=== PATIENT | female | born 1970 | race Caucasian/White ===

== ENCOUNTER 2019-08-19 00:01 | Observation (INO) ==
[2019-08-19] MEDS ORDERED: SODIUM CHLORIDE 0.9% 1000ML 1,000 ML IV ONE (00:25)
[2019-08-19] MEDS ORDERED: ONDANSETRON INJ 2 MG/ML 2 ML VIAL IV STA (00:25)
[2019-08-19] MEDS ORDERED: HYDROmorphone INJ 0.5 MG/0.5 ML SYR IV STA ×2 (00:25→01:54)
[2019-08-19 02:33] LABS: Basophils # (auto) 0.01 K/uL (0-0.2); Basophils % (auto) 0.1 %; Eosinophils # (auto) 0.02 K/uL (0-0.5); Eosinophils % (auto) 0.2 %; Hematocrit (blood only) 40.8 % (37-47); Hemoglobin 12.9 g/dL (12.0-16.0); Immature Granulocytes # (auto) 0.01 K/uL (0.00-0.02); Immature Granulocytes % (auto) 0.1 %; Lymphocytes # (auto) 0.77 K/uL (1.2-3.4); Lymphocytes % (auto) 7.3 %; Mean Corpuscular Hgb Conc 31.6 g/dL (32-36); Mean Corpuscular Volume 88.5 fL (80-100); Mean Platelet Volume 10.3 fL (7.4-10.4); Monocytes # (auto) 0.42 K/uL (0.11-0.59); Neutrophils # (auto) 9.33 K/uL (1.4-6.5); Neutrophils % (auto) 88.3 %; Platelet Count 224 K/uL (130-400); RDW Coefficient of Variation 14.2 % (11.5-14.5); RDW Standard Deviation 46.2 fL (36.4-46.3); Red Blood Count 4.61 M/uL (4.2-5.4); White Blood Count 10.56 K/uL (4.8-10.8)
[2019-08-19 02:55] LABS: Albumin Globulin Ratio 0.9 (0.9-2); Albumin Level 3.3 gm/dl (3.4-5.0); BUN Creatinine Ratio 17.5 (10-20); Bilirubin,Total 0.2 mg/dl (0.2-1); Calcium 7.8 mg/dl (8.5-10.1); Creatinine Clr Calc Pharmacy 108.4 ml/min; Est GFR (African American) 104.2; Est GFR (Non-African American) 89.9; Globulin 3.8 gm/dl (2.5-4.0); Potassium 3.9 mmol/L (3.5-5.1); Total Protein 7.1 gm/dl (6.4-8.2)
--- NOTE | 2019-08-19 03:55 | History & Physical Report ---
Date of Service August 19, 2019 Assessment & Plan (1) Cholelithiases: -will admit pt. to hospital -keep npo for possible cholecystectomy later today -will hold on IV antibiotic as no signs of cholecystitis on labs or imaging -pain control measures to be implemented -hydrate with IVF -will obtain CXR and EKG in anticipation for surgery History of Present Illness Primary Care Provider: Jayjay Mortensen MD 9 year old female developed epigastric and RUQ pain after eating dinner last night. She has had this problem in the past and was to see [facility] general surgery later this week for evaluation for cholecystectomy. As she has had this pain in the past, she notes it usually resolves but this xenia eit did not so she came to the ED. She felt warm but had no fevers. She has had N/V. The pain is worse after eating. No palliative factors noted. In the ED, GB US showed a non-mobile gallstone in the neck of the GB. She was afebrile with normal WBC. LFTs, bilirubin and lipase were all normal, except slight elevation in Alk phos. She notes she is not very active at home, but denies CP with daily acclivity. She does admit to some slight SOB with steps. She smokes daily, but less than 1ppd. She drink ETOH socially on wekends. 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 Beliefs That Will Affect Care: None Current Living Situation: Spouse Other Information That Helps Us Care for You: No Feels Safe at Home: Yes Safety Concerns: Feels Safe At This Time Smoking Status: Current every day smoker Tobacco Type: cigarettes ; Do You Dip or Chew Tobacco: No ; Second Hand Exposure: No ; Tobacco Cessation Education Requested by Patient: No Hx Alcohol Use: Yes Alcohol type: beer Hx Substance Use: No Review of Systems Constitutional: no fever and no chills Eyes: no diplopia Ear, Nose, Mouth, Throat: no ear pain Respiratory: no cough and no dyspnea Cardiovascular: no chest pain Gastrointestinal: + abdominal pain, + nausea and + vomiting Genitourinary: no dysuria Musculoskeletal: no back pain Integumentary: no rash Neurologic: no localized weakness Physical Exam Constitutional: well developed and well nourished; no acute distress Eyes: no conjunctival abnormality no scleral jaundice ENMT: Ears: no hearing impairment Nose: + dry nasal mucous membranes Neck: trachea midline Respiratory: normal respiratory effort, lungs clear to auscultation Cardiovascular: Rate/Rhythm: regular rate and regular rhythm Vessels: dorsalis pedis pulses present and radial pulses present Gastrointestinal (Abdomen): BS are hypoactive; abdomen non-distended, no rebound tenderness or guarding. Pain with palpation noted in epigastric area and RUQ Musculoskeletal: no calf pain Skin: no rashes, warm and dry Neurologic: moves all extremities Psychiatric: A+Ox3, euthymic affect Results & Data Results & Data ([facility]) Vital Signs (Past 12 Hours) Vital Signs Temp Pulse Pulse Resp BP BP Pulse Ox 08/19/19 01:55 56 L 20 168/88 H 98 08/19/19 00:52 63 20 145/75 H 98 08/19/19 00:12 36.8 C 65 18 171/97 H 97 Supervising Physician Co-Signing Physician Notes Patient seen and examined on rounds, labs and imaging reviewed, agree with above. History of cholelithiasis, set to see surgery this week. Ate wings and fries last night, had RUQ pain that wouldn't stop like normal. afvss, abd ttp in RUQ, no guarding. RUQ US with stones. labs normal. intractable biliary colic, likely cholecystitis. Plan for laparoscopic cholecystectomy, possible cholangiogram today. risks discussed to include bleeding, infection, retained stone, bile leak, damage to surrounding structures including bile duct, open surgery, need for future or more extensive surgery, and risks of anesthesia. preop abx likely d/c tomorrow. PG Care Time/CCT Total # of Minutes Spent Total Time Spent with Patient: Total time spent is greater than 50% in coordination of care (as documented) at patient's floor/unit and/or counseling patient: Coding Level of Care Code 76802 OBS Care - Level 3 Diagnoses Cholelithiases K80.20
[2019-08-19] MEDS: LACTATED RINGER'S 1,000 ML IV SCH ×3 (04:23→20:24)
[2019-08-19] MEDS ORDERED: MoRPHine SULFATE 2 MG/ML CARP IV PRN ×2 (04:53→14:33)
[2019-08-19] MEDS ORDERED: ONDANSETRON INJ 2 MG/ML 2 ML VIAL IV PRN ×2 (04:53→11:20)
--- NOTE | 2019-08-19 05:15 | Emergency Department Note ---
History of Present Illness General Chief complaint: Pain (Generalized) Stated complaint: PAIN ALL OVER, VOMITING Time Seen by Provider: 08/19/19 00:19 Source: patient and RN notes reviewed Mode of arrival: EMS Limitations: no limitations History of Present Illness Provider complaint: Epigastric abdominal pain, vomiting Maximum Pain Intensity: 4 This patient is a 49-year-old female who presents to the emergency department with complaints of abdominal pain and vomiting. She states she was recently evaluated for right upper quadrant pain by her primary care physician and found to have gallstones. She was referred to general surgery and is due to see them in 4 days. Patient denies any blood in the emesis or recent fevers. She states she had chicken wings and Italian fries for dinner. Patient denies any significant chest pain or shortness of breath. Patient did have one episode of diarrhea but denies any blood in her stools. Home Medications Home Medications Medication Instructions Recorded Confirmed Type ropinirole 1 tab PO HS 08/19/19 08/19/19 History Allergies Allergy/AdvReac Type Severity Reaction Status Date / Time No Known Allergies Allergy Unverified 08/19/19 00:35 Past Med/Surg History Medical History (Updated 08/19/19 @ 06:29 by Martha Gutierres MD) Cholelithiases (Acute) Morbid obesity with BMI of 45.0-49.9, adult (Acute) Social History Preferred Language: Kiswahili Communication Ability: Effective Developmental Writing Instructor Required: No Beliefs That Will Affect Care: None Current Living Situation: Spouse Other Information That Helps Us Care for You: No Feels Safe at Home: Yes Safety Concerns: Feels Safe At This Time Smoking Status: Current every day smoker Tobacco Type: cigarettes ; Do You Dip or Chew Tobacco: No ; Second Hand Exposure: No ; Tobacco Cessation Education Requested by Patient: No Hx Alcohol Use: Yes Alcohol type: beer Hx Substance Use: No Review of Systems See HPI for pertinent positives & negatives. and A total of 10 systems reviewed and were otherwise negative Physical Exam Vital Signs Vital Signs - 24 hr 08/19/19 00:12 08/19/19 00:52 08/19/19 01:55 Temperature 36.8 C Temperature Source Oral Pulse Rate 65 Pulse Rate [Bilateral Apical] 63 56 L Respiratory Rate 18 20 20 Blood Pressure 171/97 H Blood Pressure [Left Arm] 145/75 H 168/88 H Blood Pressure Mean 121 Blood Pressure Mean [Left Arm] 98 114 Pulse Oximetry 97 98 98 Oxygen Delivery Method Room Air Room Air Room Air Sepsis Recent Fever Within 48 Hours No Sepsis New/Unexplained Change in Mental Status No Sepsis Action Taken by Nursing No Action Required Vital signs reviewed. Noted to be hypertensive General: Well-appearing 49-year-old female, in no significant distress. HEENT: No scleral icterus, PERRLA, neck supple. Atraumatic. Cardiovascular: Regular rate and rhythm, no extra sounds. Pulmonary: Clear to auscultation bilaterally, normal work of breathing. Abdomen: Soft, tender to palpation in the epigastric and right upper quadrant, nondistended, positive bowel sounds. Musculoskeletal: Atraumatic, no peripheral edema. Neurologic: Patient awake alert and oriented x 3 Skin: Warm, dry, no rash Course Administered Medications Sodium Chloride (Nss 1000ml) 1,000 mls @ 125 mls/hr IV .Q8H ONE Stop: 08/19/19 08:24 Last Infusion: 08/19/19 02:19 Dose: 0 mls/hr Documented by: [id number] Admin: 08/19/19 00:47 Dose: 125 mls/hr Documented by: [id number] Lactated Ringer's (Lr) 1,000 mls @ 110 mls/hr IV .Q9H6M [facility] Stop: 09/18/19 03:59 Last Admin: 08/19/19 04:23 Dose: 110 mls/hr Documented by: [id number] Acetaminophen (Ofirmev) 1,000 mg in 100 mls @ 400 mls/hr IV Q8H [facility] Stop: 08/22/19 04:52 Last Admin: 08/19/19 05:32 Dose: 400 mls/hr Documented by: [id number] Discontinued Medications Hydromorphone HCl (Dilaudid) 0.5 mg IV NOW STA Stop: 08/19/19 00:26 Last Admin: 08/19/19 00:48 Dose: 0.5 mg Documented by: [id number] Hydromorphone HCl (Dilaudid) 0.5 mg IV NOW STA Stop: 08/19/19 01:55 Last Admin: 08/19/19 02:01 Dose: 0.5 mg Documented by: [id number] Ondansetron HCl (Zofran) 4 mg IV NOW STA Stop: 08/19/19 00:26 Last Admin: 08/19/19 00:48 Dose: 4 mg Documented by: [id number] Medical Decision Making Differential Diagnosis Differential diagnosis: Etiologies such as biliary colic, cholecystitis, hepatitis, perihepatitis, pancreatitis, cardiac disease, pancreatitis, gastritis, peptic ulcer disease, appendicitis, ovarian cyst, ovarian torsion, ectopic , pelvic inflammatory disease, cystitis, diverticulitis, mesenteric ischemia, inflamm atory bowel disease, ileus, bowel obstruction, aortic pathology, shingles, as well as others were considered. Medical Records Attestation: I reviewed the patient's medical records. Home Medications Current Medication List: was personally reviewed by me Laboratory Data Attestation: I reviewed the patient's lab results. Result diagrams: 08/19/19 02:11 08/19/19 02:11 Lab Results 08/19/19 08/19/19 08/19/19 Range/Units 00:30 00:30 02:11 WBC 10.56 (4.8-10.8) K/uL RBC 4.61 (4.2-5.4) M/uL Hgb 12.9 (12.0-16.0) g/dL Hct 40.8 (37-47) % MCV 88.5 (80-100) fL MCH 28.0 (25-34) pg MCHC 31.6 L (32-36) g/dL RDW Std Deviation 46.2 (36.4-46.3) fL RDW Coeff of Gaurang 14.2 (11.5-14.5) % Plt Count 224 (130-400) K/uL MPV 10.3 (7.4-10.4) fL Immature Gran % (Auto) 0.1 % Neut % (Auto) 88.3 % Lymph % (Auto) 7.3 % [place] % (Auto) 4.0 % Eos % (Auto) 0.2 % Baso % (Auto) 0.1 % Neut # (Auto) 9.33 H (1.4-6.5) K/uL Lymph # (Auto) 0.77 L (1.2-3.4) K/uL [place] # (Auto) 0.42 (0.11-0.59) K/uL Eos # (Auto) 0.02 (0-0.5) K/uL Baso # (Auto) 0.01 (0-0.2) K/uL Immature Gran # (Auto) 0.01 (0.00-0.02) K/uL Sodium Cancelled Potassium Cancelled Chloride Cancelled Carbon Dioxide Cancelled Anion Gap Cancelled BUN Cancelled Creatinine Cancelled Est Cr Clr Drug Dosing Cancelled Est GFR ( Amer) Cancelled Est GFR (Non-Af Amer) Cancelled BUN/Creatinine Ratio Cancelled Glucose Cancelled Calcium Cancelled Total Bilirubin Cancelled AST Cancelled ALT Cancelled Alkaline Phosphatase Cancelled Total Protein Cancelled Albumin Cancelled Globulin Cancelled Albumin/Globulin Ratio Cancelled Lipase Cancelled 08/19/19 Range/Units 02:11 WBC (4.8-10.8) K/uL RBC (4.2-5.4) M/uL Hgb (12.0-16.0) g/dL Hct (37-47) % MCV (80-100) fL MCH (25-34) pg MCHC (32-36) g/dL RDW Std Deviation (36.4-46.3) fL RDW Coeff of Gaurang (11.5-14.5) % Plt Count (130-400) K/uL MPV (7.4-10.4) fL Immature Gran % (Auto) % Neut % (Auto) % Lymph % (Auto) % [place] % (Auto) % Eos % (Auto) % Baso % (Auto) % Neut # (Auto) (1.4-6.5) K/uL Lymph # (Auto) (1.2-3.4) K/uL [place] # (Auto) (0.11-0.59) K/uL Eos # (Auto) (0-0.5) K/uL Baso # (Auto) (0-0.2) K/uL Immature Gran # (Auto) (0.00-0.02) K/uL Sodium 144 Potassium 3.9 Chloride 111 H Carbon Dioxide 25 Anion Gap 8.0 BUN 14 Creatinine 0.78 Est Cr Clr Drug Dosing 108.4 Est GFR ( Amer) 104.2 Est GFR (Non-Af Amer) 89.9 BUN/Creatinine Ratio 17.5 Glucose 135 H Calcium 7.8 L Total Bilirubin 0.2 AST 9 L ALT 19 Alkaline Phosphatase 118 H Total Protein 7.1 Albumin 3.3 L Globulin 3.8 Albumin/Globulin Ratio 0.9 Lipase 171 Imaging Data Attestation: I personally reviewed and interpreted this imaging study as follows: My Impression: Chest x-ray to my interpretation reveals no evidence of focal lung consolidation or failure. Radiologist's Impression: Ultrasound right upper quadrant: Cholelithiasis is noted in the gallbladder with non-mobile gallstone extending into the gallbladder neck. There is a reported positive sonographic Hunter sign; however, there is no other associated sonographic findings to suggest acute cholecystitis. Please correlate clinically. Functional radionucleotide imaging of the gallbladder may be performed in clinically equivocal cases. No biliary dilatation with the common bile duct measuring only 4 mm. No significant intrahepatic biliary dilatation. The liver is hyperechoic and enlarged measuring 20.1 cm in length. The visualized pancreas, IVC and right kidney are unremarkable. No free intraperitoneal fluid. Radiologist: Cruzito Napoles MD ECG Data Attestation: I personally reviewed and interpreted this ECG as follows: Indication: + abdominal pain Rate (beats per minute): 62 Rhythm: + normal sinus ECG Intervals/blocks: + Normal QT-c ECG [place]: + Normal ECG ST segments: + Normal ST segments ECG Findings: + PACs; no PVCs Blood Pressure Blood Pressure Findings: Elevated blood pressure Blood Pressure Disposition: elevated BP felt to be situational (Will require follow-up) MDM Narrative This patient was evaluated and appeared to be in no significant distress. IV access was obtained and laboratory work was drawn. An order for cardiac monitoring was placed the patient is found to be in a normal sinus rhythm at 63 bpm. Right upper quadrant ultrasound reveals cholelithiasis with a non-mobile stone in the gallbladder neck. Laboratory work is reassuring with a normal WBC and liver function studies. Patient required IV normal saline solution, Dilaudid 0.5 mg IV, Zofran 4 mg IV. A repeat dose of Dilaudid was given x1. I did discuss the findings with the patient who stated that her pain was present and significant enough that she was not interested in going home. Patient's case was discussed with Norman Barrientos PA-C of general surgery. The patient was evaluated and admitted for further management. Impression & Plan Cholelithiases, Morbid obesity with BMI of 45.0-49.9, adult Discharge Plan Visit Data *Final* Discharge Date/Time: 08/19/19 04:34 Chief Complaint: Pain (Generalized) Stated Complaint: PAIN ALL OVER, VOMITING ED Provider: Martha Gutierres Discharge Problem: Cholelithiases, Morbid obesity with BMI of 45.0-49.9, adult Patient Disposition: Admitted As Inpatient Discharge Instructions Interventions: ED Discharge Assessment Last Done: 08/19/19 04:34 Discharge Problem: Cholelithiases Qualifiers: Cholelithiasis location: gallbladder Cholecystitis presence: without cholecystitis Biliary obstruction: without biliary obstruction Qualified Code(s): K80.20 - Calculus of gallbladder without cholecystitis without obstruction
[2019-08-19] MEDS: ACETAMINOPHEN 1,000 MG/100 ML VIAL IV SCH ×3 (05:32→20:21)
--- NOTE | 2019-08-19 07:31 | Ultrasound Report ---
US gallbladder HISTORY: Pain RUQ abd pain COMPARISON: None. FINDINGS: Several gallstones within the gallbladder lumen. Common bile duct 4 mm. Mild fatty replacement of the liver. Pancreas and right kidney are unremarkable. No evidence for right renal hydronephrosis. IMPRESSION: 1. Gallstones. 2. Normal caliber bile ducts. 3. Mild fatty replacement of the liver. ACT 112: Negative or not required by law. The above report was generated using voice recognition software. It may contain grammatical, syntax or spelling errors. Electronically signed by: Carson Buckley M.D. 08/19/2019 7:30 AM
--- NOTE | 2019-08-19 07:33 | XRay Report ---
XR chest 1V portable CLINICAL HISTORY: pre-op exam preoperative COMPARISON STUDY: No previous studies for comparison. FINDINGS: The bones soft tissues and hemidiaphragms are normal. The cardiomediastinal silhouette is n ormal. The lungs are clear. The pulmonary vasculature is normal. Minimal left basilar atelectasis IMPRESSION: No acute process. ACT 112: Negative or not required by law. The above report was generated using voice recognition software. It may contain grammatical, syntax or spelling errors. Electronically signed by: Carson Buckley M.D. 08/19/2019 7:32 AM
[2019-08-19] MEDS ORDERED: fentaNYL citrate 100 MCG/2 ML VIAL ONE ×2 (11:03→11:59)
[2019-08-19] MEDS ORDERED: GLYCOPYRROLATE 0.2 MG/ML VIAL ONE ×2 (11:03→12:04)
[2019-08-19] MEDS ORDERED: NEOSTIGMINE METHYLSULFATE 5 MG/5 ML SYR ONE (11:03)
[2019-08-19] MEDS ORDERED: ONDANSETRON INJ 2 MG/ML 2 ML VIAL ONE (11:03)
[2019-08-19] MEDS ORDERED: BUPIVACAINE 0.5 % 5 MG/1 ML MPF 30ML VIAL ONE (11:03)
[2019-08-19] MEDS ORDERED: MIDAZOLAM HCL 1 MG/ML 2ML VIAL ONE (11:03)
[2019-08-19] MEDS ORDERED: DEXAMETHASONE SOD INJ 4 MG/ML VIAL ONE (11:03)
[2019-08-19] MEDS ORDERED: LIDOCAINE HCL 2% 2 ML VIAL/AMP(20MG/ML) INFIL ONE (11:03)
[2019-08-19] MEDS ORDERED: PROPOFOL IV EMULSION 10 MG/ML 20 ML VIAL IV ONE (11:03)
--- NOTE | 2019-08-19 11:10 | Anesthesiology Consultation ---
Date of Service August 19, 2019 Assessment & Plan (1) Encounter for pre-operative examination: Chart Review Chart Review: Acceptable Risk for Surgery History Surgery Operation Date: 08/19/19 07:00 Proposed Procedures p Laparoscopic Cholecystectomy, Possible Open - Umair Walker DO, ARACELI Height/Weight Height: 5 ft 2 in Weight: 120.1 kg Allergies Allergy/AdvReac Type Severity Reaction Status Date / Time No Known Allergies Allergy Unverified 08/19/19 00:35 Medications Home Medications Medication Instructions Recorded Confirmed Last Taken ropinirole 1 tab PO HS 08/19/19 08/19/19 08/18/19 Active Medications Generic Name Dose Route Start Last Admin Trade Name Freq PRN Reason Stop Dose Admin Lactated Ringer's 1,000 mls @ 110 mls/hr 08/19/19 04:00 08/19/19 04:23 Lr IV 09/18/19 03:59 110 mls/hr .Q9H6M [facility]ATHER Administration Acetaminophen 1,000 mg in 100 mls @ 400 mls/hr 08/19/19 04:53 08/19/19 05:50 Ofirmev IV 08/22/19 04:52 Infused Q8H [facility]ATHER Infusion Morphine Sulfate 2 mg 08/19/19 04:53 08/19/19 08:23 Morphine Sulfate IV 09/02/19 04:52 2 mg Q3H PRN Administration Pain NPO Date Last Intake of Fluids: 08/19/19 Time Last Intake of Fluids: 05:00 Date Last Intake of Solids: 08/19/19 Time Last Intake of Solids: 05:00 Past Medical History Medical History Cholelithiases (Acute) Morbid obesity with BMI of 45.0-49.9, adult (Acute) Social History Smoking Status: Current every day smoker tobacco type: cigarettes Do You Dip or Chew Tobacco: No Hx Alcohol Use: Yes Alcohol type: beer alcohol intake frequency: a few times a month Hx Substance Use: No Physical Exam Vital Signs Last Vital Signs Temp 36.7 C 08/19/19 07:49 Pulse 61 08/19/19 07:49 Resp 16 08/19/19 07:49 BP 129/70 08/19/19 07:49 Pulse Ox 97 08/19/19 07:49 Testing Laboratory Results 08/19/19 02:11 08/19/19 02:11
[2019-08-19] MEDS ORDERED: KETOROLAC 30 MG/ML VIAL IV PRN (11:20)
[2019-08-19] MEDS ORDERED: ATROPINE SULFATE 0.1 MG/ML 10ML SYR IV PRN (11:20)
[2019-08-19] MEDS ORDERED: PROMETHAZINE HCL 6.25 MG in SODIUM CHLORIDE 0.9% 50 ML IV PRN (11:20)
--- NOTE | 2019-08-19 12:44 | Operative Report ---
PG Post Operative Report Pre & Post Diagnosis Operation Date: 08/19/19 07:00 Pre-Op Diagnosis: CHOLELITHIASIS Post-Op Diagnosis: Acute Cholecystitis I identified the patient and participated in the time-out.: Yes Procedure Operation Date: 08/19/19 07:00 Actual Procedures p Laparoscopic Cholecystectomy - Umair Walker DO, FACS Surgeon Umair Walker DO, FACS Health Services Administrator Farhan [place] Estimated Blood Loss 10 Findings Consistent with Post-Op Diagnosis Acute on chronic cholecystitis. Critical view of safety obtained, cystic duct and artery doubly clipped and divided. Good hemostasis. Specimens Gallbladder Anesthesia Type General Complications none Disposition Accompanied Patient To Recovery: No Disposition: Recovery Room Indications 49-year-old female with known history of symptomatic cholelithiasis, presented to the emergency department overnight after intractable biliary colic. Ultrasound showed cholelithiasis with no evidence of acute cholecystitis. Labs were unremarkable. Her pain did not improve in the emergency department she was admitted to the surgery service. Plan for laparoscopic cholecystectomy, possible cholangiogram. The risks of the procedure were discussed, all questions were answered, and the patient agreed to proceed with surgery as planned. Description of Procedure The patient was properly identified, consented, and taken to the operating room where she was placed in the supine position. General endotracheal anesthesia was induced. SCDs and a safety belt were placed. Preoperative antibiotics were administered. The patient's abdomen was prepped and draped in the standard sterile fashion. A surgical timeout was performed and all parties were in agreement that this was the correct patient and procedure to be performed and we continued as planned. An incision was made superior and to the left of the umbilicus overlying the rectus muscle and the Veress needle was inserted. Saline drop test confirmed entry into the peritoneum. The abdomen was insufflated with carbon dioxide which the patient tolerated without incident. The abdomen was then entered using the Optiview technique and a 5 mm trocar. The laparoscope was inserted and no damage from initial trocar or Veress needle placement was noted, no gross abnormalities were noted within the 4 quadrants of the abdomen. An 11 mm port was placed in the subxiphoid position and two 5 mm ports were then placed in the right subcostal position. The patient was placed in reverse Trendelenburg position and rotated towards the left. The gallbladder was moderately and acutely inflamed. The dome of the gallbladder was retracted towards the left upper quadrant and the infundibulum was retracted toward the right lower quadrant revealing Calot's triangle. Peritoneal attachments were taken down with electrocautery and blunt dissection. The cystic duct and artery were circumferentially dissected. A window of safety was obtained showing the cystic duct entering the gallbladder with no aberrant structures noted. The cystic duct and artery were doubly clipped and divided. The gallbladder was then lifted off the gallbladder fossa with electrocautery. There was pericholecystic fluid consistent with acute cholecystitis. The gallbladder was placed in an Endo Catch bag and removed through the subxiphoid port site. The right upper quadrant was irrigated and hemostasis was found to be good. 5 mm trochars were removed under direct visualization and the abdomen was allowed to collapse. The subxiphoid port site fascia was closed with 0 Vicryl suture utilizing the Roland-Kash device. The wound was irrigated, and the skin of all ports was closed with 4-0 Monocryl subcuticular sutures. Dermabond was placed over the wounds. The patient was extubated in the operating room and taken to the PACU where she recovered without apparent incident. All sponge, instrument and needle counts were correct at the conclusion of the procedure. The patient tolerated the procedure well. The physician's office administrative assistant was present and scrubbed for the entirety of the case and was essential in positioning the patient, prepping and draping, retraction and exposure, driving the laparoscope, removal of the gallbladder, closure the incisions, and placement of the dressings. I attest to the content of the Intraoperative Record and any orders documented therein. Any exceptions are noted below.
[2019-08-19] MEDS: HYDROmorphone INJ 1 MG/ML SYRINGE IV PRN ×4 (13:23→13:46)
--- NOTE | 2019-08-19 13:46 | Anesthesiology Progress Note ---
Date of Service August 19, 2019 Anesthesia Post Procedure Vital Signs Vital Signs: Temp Pulse Pulse Pulse Pulse Resp BP 08/19/19 13:45 68 15 08/19/19 13:35 61 17 08/19/19 13:25 63 18 08/19/19 13:18 97.2 F L 65 16 08/19/19 11:22 98.4 F 68 16 08/19/19 07:49 98.1 F 61 16 08/19/19 05:00 97.9 F 63 14 08/19/19 04:54 97.9 F 63 14 08/19/19 04:14 67 18 08/19/19 01:55 56 L 20 08/19/19 00:52 63 20 08/19/19 00:12 98.2 F 65 18 171/97 H BP Pulse Ox Pulse Ox 08/19/19 13:45 105/86 95 08/19/19 13:35 139/78 95 08/19/19 13:25 148/81 H 95 08/19/19 13:18 150/75 H 100 08/19/19 11:22 152/76 H 96 08/19/19 07:49 129/70 97 08/19/19 05:00 164/92 H 99 99 08/19/19 04:54 164/92 H 99 08/19/19 04:14 155/93 H 96 08/19/19 01:55 168/88 H 98 08/19/19 00:52 145/75 H 98 08/19/19 00:12 97 Pain Intensity Right Abdomen: Pain Intensity: 6 Transfer of Care Handoff Completed per policy Notes Mental Status: alert / awake / arousable and participated in evaluation Patient Amnestic to Procedure: Yes Nausea / Vomiting: adequately controlled Pain: adequately controlled Airway Patency, RR, SpO2: stable & adequate BP & HR: stable & adequate Hydration State: stable & adequate Anesthetic Complications: no major complications apparent and Pt Satisfied with anesthetic care
--- NOTE | 2019-08-19 14:21 | Electrocardiogram Report ---
Test Reason : Blood Pressure : / mmHG Vent. Rate : 062 BPM Atrial Rate : 062 BPM P-R Int : 174 ms QRS Dur : 082 ms QT Int : 430 ms P-R-T Axes : 052 056 021 degrees QTc Int : 436 ms Sinus rhythm with Premature atrial complexes Otherwise normal ECG No previous ECGs available Confirmed by Ariel Chatterjee ([id number]) on 08/19/2019 2:20:23 PM Referred By: REFERRED SELF Confirmed By:Sunday Chatterjee
[2019-08-19] MEDS ORDERED: MoRPHine SULFATE 4 MG/ML 1 ML CARP\\VIAL IV PRN (14:33)
[2019-08-19] MEDS ORDERED: OXYCODONE/ACETAMINOPHEN 5mg/325mg TAB PO PRN (18:28)
[2019-08-19] MEDS: OXYCODONE/ACETAMINOPHEN 5mg/325mg TAB PO PRN (19:28)
[2019-08-19] MEDS ORDERED: ROPINIROLE HCL 1 MG TABLET PO SCH (21:00)
[2019-08-20] MEDS: LACTATED RINGER'S 1,000 ML IV SCH (05:37)
[2019-08-20] MEDS: ACETAMINOPHEN 1,000 MG/100 ML VIAL IV SCH (05:50)
[2019-08-20 06:15] LABS: Appearance Urine Clear (Clear); Bilirubin Urine Negative (Negative); Blood Urine Negative (Negative); Color Urine Yellow; Glucose Urine UA Negative (Negative); Ketones Urine Negative (Negative); Leukocyte Esterase Urine Negative (Negative); Nitrite Urine Negative (Negative); Protein Urine Negative (Negative); Specific Gravity Urine 1.013 (1.000-1.030); Urobilinogen Urine Negative (Negative)
[2019-08-20 06:19] LABS: Pregnancy Test, Urine Negative (Negative)
[2019-08-20] MEDS: OXYCODONE/ACETAMINOPHEN 5mg/325mg TAB PO PRN (10:00)
--- NOTE | 2019-08-20 10:12 | Surgery Progress Note ---
Date of Service August 20, 2019 Assessment & Plan (1) Cholelithiases: POD#1 laparoscopic cholecystectomy patient doing well clinically tolerated regular diet pain well controlled stable for discharge to home today will give patient note for work dispo instructions given- plan for follow up with Dr. Walker within 1-2 weeks as outpatient Subjective Patient states she feels a lot better today. Tolerated a regular diet at breakfast. Pain controlled with prn medication. Physical Exam Physical Exam: awake/alert Respiratory: normal respiratory effort Gastrointestinal (Abdomen): Inspection/Auscultation: + abdominal surgical incision (c/d/i with dermabond overtop, mild ecchymosis lul sub-xiphoid incision) Percussion/Palpation: + abdomen tender (minimal ttp lul-subxiphoid incision) and abdomen soft Results & Data Vital Signs (Past 12 Hours) Vital Signs Temp Pulse Pulse Resp BP Pulse Ox Pulse Ox 08/20/19 07:14 36.7 C 65 16 127/75 92 08/20/19 03:36 36.7 C 65 16 130/81 92 08/20/19 00:35 92 08/19/19 23:05 36.8 C 68 15 116/69 92 PG Care Time/CCT Total # of Minutes Spent Total Time Spent with Patient: Total time spent is greater than 50% in coordination of care (as documented) at patient's floor/unit and/or counseling patient: Coding Level of Care Code None Diagnoses Cholelithiases K80.20 Biliary obstruction: without biliary obstruction Cholecystitis presence: without cholecystitis Cholelithiasis location: gallbladder (1) Cholelithiases Biliary obstruction: without biliary obstruction Cholecystitis presence: without cholecystitis Cholelithiasis location: gallbladder Qualified Code(s): K80.20 - Calculus of gallbladder without cholecystitis without obstruction
--- NOTE | 2019-08-22 15:59 | Discharge Summary ---
Date of Service August 22, 2019 Admission HPI Per Admitting Provider 9 year old female developed epigastric and RUQ pain after eating dinner last night. She has had this problem in the past and was to see [facility] general surgery later this week for evaluation for cholecystectomy. As she has had this pain in the past, she notes it usually resolves but this xenia eit did not so she came to the ED. She felt warm but had no fevers. She has had N/V. The pain is worse after eating. No palliative factors noted. In the ED, GB US showed a non-mobile gallstone in the neck of the GB. She was afebrile with normal WBC. LFTs, bilirubin and lipase were all normal, except slight elevation in Alk phos. She notes she is not very active at home, but denies CP with daily acclivity. She does admit to some slight SOB with steps. She smokes daily, but less than 1ppd. She drink ETOH socially on wekends. Principal Diagnosis Acute cholecystitis Discharge Exam Gastrointestinal (Abdomen) Inspection/Auscultation: + abdominal surgical incision (clean, dry) Percussion/Palpation: abdomen soft Discharge Data Allergies Allergy/AdvReac Type Severity Reaction Status Date / Time No Known Allergies Allergy Unverified 08/19/19 00:35 Procedures Performed Operation Date: 08/19/19 07:00 Actual Procedures p Laparoscopic Cholecystectomy(Not Applicable) - Umair Walker DO, FACS Ordered Studies 08/19/19 00:25 gallbladder Urgent Hospital Course (1) Cholelithiases: 49 y/o female presented to the ER with persistent abdominal pain and had been scheduled for outpatient cholecystectomy. she was admitted to the surgery service overnight and taken to the operating room for laparoscopic cholecystectomy in the morning. She was returned to the surgical floor for overnight observation. By the next morning she was able to tolerate diet and oral analgesics and was stable for discharge home. Total Time Total Time Spent Total Time Spent (In Minutes): 10 Discharge Plan Discharge Items Patient Disposition: Home - Self-Care Reason For Visit: CHOLELITHIASIS Discharge Diagnosis: laparoscopic cholecystectomy Activity: As commented below Lifting: No more than 10 pounds Bathing: No limitations Bathing Comment: ok to let water run over your incisions, the skin glue is waterproof Driving/Machine Use: Resume 3 days after discharge Non-emergency contact: Surgeon Call non-emergency contact if: you have any medication questions, you have a fever, your temperature is above 101.5 and your wound has increased redness Follow-up/Referrals: Umair Walker DO, FACS [Physician] - 08/29/19 9:30 am (Call the office to make an appt within 2 weeks spoke with clarissa at the office regarding appt. ) Jayjay Mortensen MD [Primary Care Provider] - 08/26/19 2:00 pm (You have a follow up appt on MondayAugust 25 at 2:00pm. Please arrive 15 minutes prior to your appt. If this appt time does not fit your schedule please call [phone] to reschedule. Please also remember to bring your face mask. [address] [place] [address] Dr. Garsia, Abdullah[place] [id number]) Diet: Regular Addtl Attending Provider Instructions: Pending Studies at Discharge: No Stand-Alone Forms: [employer], Opioid Pain Management, Work/School Release (Inpt), Smoking Cessation Medications and DC Order Prescriptions: New oxycodone-acetaminophen [Percocet] 5-325 mg tablet 1 - 2 tab PO Q4H PRN (Reason: pain, initial therapy, max 6 daily) Qty: 15 RF: 0 Continued ropinirole 1 tab PO HS RF: 0 Discharge Orders: Discharge Order (Routine); Ordered 08/19/19 Ordered By: Farhan Palm/Other Patient Handouts: After Gallbladder Surgery, Having Laparoscopic Cholecystectomy Admission Data Admit Date/Time: 08/19/19 03:59 Attending Provider: Umair Walker Admit Provider: Umair Walker Primary Care Provider: Jayjay Mortensen Other Interventions: Discharge Summary Assessment (RN) Last Done: 08/20/19 10:29 DC Date/Time DO NOT enter until pt leaves facility: 08/20/19 11:04 Coding Level of Care Code D/C Day Management <30 mins Diagnoses Cholelithiases K80.20 Biliary obstruction: without biliary obstruction Cholecystitis presence: without cholecystitis Cholelithiasis location: gallbladder
== END 2019-08-20 11:04 | disposition home or self-care (01) ==
LOC: 3W 00:01 → ED 00:01 → 3W 04:34